=== PATIENT | female | born 1965 | race Caucasian/White ===

== ENCOUNTER 2016-09-20 13:05 | Emergency (ER) | payer OTHER ==
--- NOTE | 2016-09-20 15:50 | ED NURSING NOTES ---
Clinical Report - Nurses [facility] [address] [place] [address] 09/20/2016 13:09 Patient: ABHIJEET HUI TRIAGE Triage time 13:17. Acuity: LEVEL 3. Chief Complaint: ABDOMINAL PAIN and VOMITING and ("diverticulitis flare up"). Alert. No acute distress. SEPSIS SCREEN: Sepsis Screen. Negative (no infection suspected/documented). ELISA COMA SCORE: [place] Coma Scale: 15- eyes open spontaneously (4); best verbal response- oriented x 4 (5); best motor response- obeys commands (6). --13:31 Franchesca De La Torre R.N. 13:16 09/20/16. BP: 143/84. HR: 88. RR: 16. O2 saturation: 98%. Temp: 98.2 F. Pain level now 12/24. --13:31 Franchesca De La Torre R.N. Weight: 96.6 kg stated. Height/Length: 68 inches Per Patient. BMI: 32.4. --13:30 Franchesca De La Torre R.N. Medications NexIUM Oral. --13:22 Franchesca De La Torre R.N. Allergies Penicillin. --13:28 Franchesca De La Torre R.N. History Arrived by private vehicle. Historian: patient. Unaccompanied. Primary physician (GI: Dr. Romo/[facility]). Onset. (2 days ago). ( last normal BM:wednesday. Pt. states, " It looked normal but it hurt really bad. There was a round [place] around my feces." Then sat. I woke up at 0300 doubled over in bed in pain." Pt. is here because she is concerned with the pain. She has had many "flare ups" but usually the pain is not as bad.). PAST MEDICAL HX: Immunizations: up-to-date. SOCIAL HX: Light tobacco smoker (cigarette)- less than 1/2 a pack per day. Never smoker. No alcohol use or drug use. No recent travel. No infectious disease exposure. No known contact with a sick individual. ABUSE ASSESSMENT: Abuse assessment: The patient was asked "Do you feel safe in your home?" and "Has anyone hurt you or threatened to hurt you?". No report of abuse. NUTRITIONAL RISK ASSESSMENT: The nutritional risk assessment revealed no deficiencies. FUNCTIONAL ASSESSMENT: Functional assessment: no impairments noted. LEARNING NEEDS ASSESSMENT: The learning needs assessment revealed no barriers. --13:31 Franchesca De La Torre R.N. PROBLEMS: Nephrolithiasis. --13:28 Franchesca De La Torre R.N. Diverticulosis. Diverticulitis. GERD. --13:29 Franchesca De La Torre R.N. Interventions ID band on patient. Ambulatory. --13:31 Franchesca De La Torre R.N. PHYSICAL ASSESSMENT Ambulatory to room. GENERAL / NEURO / PSYCH: Alert. Appears in no acute distress. HEENT: Mucous membranes are pink. RESPIRATORY: Respirations not labored. CVS: Capillary refill less than 2 seconds. GI / : Abdomen soft. Abdominal tenderness in the lower abdomen. SKIN: Skin is warm and dry. --13:31 Franchesca De La Torre R.N. NURSING PROGRESS NOTES Patient gowned. Head of bed elevated. Two patient identifiers checked. Call light placed in reach. Side rails up x 2. Bed placed in lowest position. Brakes of bed on. Patient ready for evaluation- chart flagged. --13:24 Franchesca De La Torre R.N. Patient ID band checked for patient name, birthdate and medical record number: patient confirmed. Instructions provided to collect clean catch urine and patient verbalized understanding. Clean catch urine collected with return of yellow-colored clear urine; sample sent to lab for urinalysis. Specimen labeled in the presence of the patient. --13:24 Franchesca De La Torre R.N. 13:35 09/20/2016 Site #1 started via IV in the left antecubital space with an 20g angiocath, with aseptic technique and good blood return; one attempt. Blood drawn: rainbow set. Labeled in the presence of the patient and sent to the lab. Saline lock flushed with 10 mL saline. --13:35 Franchesca De La Torre R.N. 13:38 09/20/2016 Started bag #1 1000 mL IV Fluids IV NS (Saline); at 1000 mL/hr over 1 hour(s) via site #1 via IV pump. Allergies verified and confirmed 5 rights. IV patency established. IV site checked: no pain, redness, or swelling. IV flushed thoroughly pre- and post-medication administration. --13:41 Franchesca De La Torre R.N. 13:42 09/20/2016 Zofran (Ondansetron HCl) IVP 8 mg given over 3 minute(s) via site #1. Allergies verified and confirmed 5 rights. IV patency established. IV site checked: no pain, redness, or swelling. IV flushed thoroughly pre- and post-medication administration. --13:42 Franchesca De La Torre R.N. 14:20 09/20/2016 PHENERGAN (Promethazine HCl) IVP 12.5 mg given over 2 minute(s) via site #1. Allergies verified and confirmed 5 rights. IV patency established. IV site checked: no pain, redness, or swelling. IV flushed thoroughly pre- and post-medication administration. --14:20 Franchesca De La Torre R.N. 14:23 09/20/2016 Dilaudid (HYDROmorphone HCl PF) IVP 1 mg given over 2 minute(s) via site #1. Allergies verified, confirmed 5 rights and sedative warning given to the patient. IV patency established. IV site checked: no pain, redness, or swelling. IV flushed thoroughly pre- and post-medication administration. --14:23 Franchesca De La Torre R.N. 14:23 09/20/16. BP: 110/81. HR: 64. RR: 16. O2 saturation: 98%. --14:24 Franchesca De La Torre R.N. 14:39 09/20/2016 Dilaudid IVP Response: no adverse reaction pain is improving. The patient feels better. --14:39 Franchesca De La Torre R.N. 15:32 09/20/16. BP: 117/76. HR: 82. RR: 14. O2 saturation: 93%. --15:33 Franchesca De La Torre R.N. 15:56 09/20/2016 Metronidazole PO 500 mg given. Allergies verified and confirmed 5 rights. --15:56 Franchesca De La Torre R.N. 15:57 09/20/2016 Ciprofloxacin (Ciprofloxacin) PO 500 mg given. Allergies verified and confirmed 5 rights. --15:57 Franchesca De La Torre R.N. 15:33 09/20/16. O2 saturation: 96% on nasal cannula at 2 liters/minute. --16:06 Franchesca De La Torre R.N. DISPOSITION / DISCHARGE 15:59 09/20/2016 Site #1 removed upon discharge. Catheter intact. Manual pressure and bandaid applied. --15:59 Franchesca De La Torre R.N. Condition at departure: stable. No learning barriers present. Discharge instructions provided and reviewed with the patient. Reviewed medication(s) side effects, precautions, dosing and course information. Prescription(s) given to the patient. Reviewed referral to family practice for followup. Patient verbalized understanding. Written instructions provided in Pashto. The patient was discharged home and accompanied by truck driver flatbed. She left the Emergency Department ambulatory and via private vehicle. Professor Of German driving. Medication list reviewed and validated. --16:00 Franchesca De La Torre R.N. 15:57 09/20/16. BP: 117/75. HR: 89. RR: 16. O2 saturation: 98%. Temp: 97.8 F. Pain level now 4/10. --16:00 Franchesca De L aTorre R.N. Departure time: 16:00. --16:00 Franchesca De La Torre R.N. Locked/Released at 09/20/2016 16:06 by Franchesca De La Torre R.N.
--- NOTE | 2016-09-20 15:50 | ED ORDER SUMMARY ---
..... Patient: ABHIJEET HUI OrderSheet [facility] VisitID: [id number] [address] [place] [address] 50y, F Registration Date/Time: 09/20/2016 ORDER SHEET Weight: 96.6 kg (stated) Allergies: Penicillin GENERAL ORDERS: CBC w Diff Urgent (13:35 09/20/2016 EKoroleva P.A.-C) (Ack 13:40 TBergley) (13:41 SReitz R.N.) CMP Urgent (13:35 09/20/2016 EKoroleva P.A.-C) (Ack 13:40 TBergley) (13:41 SReitz R.N.) UA-Culture if indicated Urgent (13:35 09/20/2016 EKoroleva P.A.-C) (13:36 OHernandez) Lipase Urgent (13:35 09/20/2016 EKoroleva P.A.-C) (Ack 13:40 TBergley) (13:41 SReitz R.N.) CT Abd/Pel w Cont (No) (see lab) Urgent (14:17 09/20/2016 EKoroleva P.A.-C) (Ack 14:18 TBergley) (14:56 OHernandez) MEDICATION ORDERS: Phenergan IV 12.5 mg (HIGH ALERT MEDICATION, NOW) (14:16 09/20/2016 EKoroleva P.A.-C) (14:20 SReitz R.N.) Metronidazole PO 500 mg (NOW) (15:48 09/20/2016 EKoroleva P.A.-C) (Ack 15:49 SReitz R.N.) (15:56 SReitz R.N.) Ciprofloxacin PO 500 mg (NOW) (15:48 09/20/2016 EKoroleva P.A.-C) (Ack 15:49 SReitz R.N.) (15:57 SReitz R.N.) IV FLUIDS: IV NS : initial bolus 1000 mL (1000 mL/hr), then 1000 mL/hr for X1 (NOW); Cesar (13:34 09/20/2016 EKoroleva P.A.-C) (13:41 Nolan Valle) Zofran IV 8 mg (NOW) (13:35 09/20/2016 Zoë Herring) (13:42 Nolan Valle) Dilaudid IV 1 mg (HIGH ALERT MEDICATION, NOW) (14:16 09/20/2016 Zoë Yang-C) (14:23 Nolan Valle) ORDER SHEET NOTES: [Electronically signed by Franchesca De La Torre R.N. (16:04 09/20/2016)] [Electronically signed by Lisa Villeda P.A.-C (16:04 09/20/2016)] [Electronically signed by Franchesca De La Torre R.N. (16:06 09/20/2016)] [Electronically locked/signed by Franchesca De La Torre R.N. (16:04 09/20/2016)]
--- NOTE | 2016-09-20 15:50 | ED CLINICAL REPORT ---
Clinical Report - Physicians/Mid Levels [facility] [address] [place] [address] 09/20/2016 13:09 [id number] Time Seen: 13:31 Sep 20 2016. Arrived- By private vehicle. Historian- patient. HISTORY OF PRESENT ILLNESS Chief Complaint: ABDOMINAL PAIN. This started 2 days [employer] and is still present. It is described as "pain" and it is described as located in the right flank, the right abdomen and the left flank and in the pelvic area. The patient has had nausea, loss of appetite and vomiting. No diarrhea. (Patient reports pain over the last 2 days, recently on Wednesday was seen by ENT, increase her dose of Nexium, as patient has Flores's esophagitis, history of GERD, in addition patient reports some pelvic pain, and some frequency with no dysuria. Denies any diarrhea. Reports emesis 2 times over the last 24 hours.). REVIEW OF SYSTEMS No constipation, black stools, difficulty with urination, pain with urination or urinary frequency. No headache or sore throat. All systems otherwise negative, except as recorded above. PAST HISTORY Problems: Diverticulitis. Diverticulosis. GERD. Nephrolithiasis. Medications: NexIUM Oral. Allergies: Penicillin. SOCIAL HISTORY Smoker- current status unknown. No alcohol use. ADDITIONAL NOTES The nursing notes have been reviewed. PHYSICAL EXAM Vital Signs: 09/20/2016 13:17 BP: 143/84. HR: 88. RR: 16. O2 saturation: 98%. Temp: 98.2 F. Appearance: Alert. Eyes: Eyes normal inspection. ENT: Nose normal. Pharynx normal. Neck: Normal inspection. CVS: Normal heart rate and rhythm. Heart sounds normal. Rhythm normal. Respiratory: No respiratory distress. No accessory muscle use or decreased air movement. Abdomen: Soft. Tenderness in the lower abdomen. No obesity, rebound tenderness, scar present or guarding. Neuro: Oriented X 3. No motor deficit. LABS, X-RAYS, AND EKG Abdominal CT: IMPRESSION: 1. Moderate sigmoid diverticulitis with mural phlegmon. No perforation or drainable abscess. 2. Mild hepatic steatosis. 3. Findings called to the emergency room. All CT scans at this facility use dose modulation, iterative reconstruction, and/or weight-based dosing when appropriate to reduce radiation dose to as low as reasonably achievable. Electronically Final signed by:Karie Concepcion MD 09/20/2016 3:53:27 PM. Laboratory Tests: UA-Culture if indicated: (TRACIE: 09/20/2016 13:19) ( [facility] 09/20/2016 14:03) Final results Test Result Flag Units (Reference) URINE COLOR YELLOW URINE APPEARANCE CLEAR URINE GLUCOSE NEGATIVE (NEGATIVE) URINE BILIRUBIN NEGATIVE (NEGATIVE) URINE KETONE NEGATIVE (NEGATIVE) URINE SPECIFIC GRAVITY 1.020 (1.010-1.030) URINE PH 6.0 (5.0-8.0) URINE PROTEIN NEGATIVE (NEGATIVE) URINE UROBILINOGEN 0.2 EU/dL (0.2-1.0) URINE NITRITE NEGATIVE (NEGATIVE) URINE BLOOD NEGATIVE (NEGATIVE) URINE LEUK ESTERASE NEGATIVE (NEGATIVE) URINE RBC 0-1 rbc/hpf (0-1) URINE WBC 0-1 wbc/hpf (0-1) URINE EPITHELIAL CELLS 1-3 EPI/hpf (0-5) URINE BACTERIA FEW (1+) (NONE SEEN) URINE COMMENT CULT NOT INDICATED 1+ MUCOUSURINE CULTURES ARE SET-UP BASED ON THE FOLLOWING CRITERIA:POSITIVE NITRITEPOSITIVE LEUKOCYTE ESTERASEGREATER THAN 10 WHITE BLOOD CELLSMODERATE (2+) OR GREATER BACTERIA CBC w Diff: (TRACIE: 09/20/2016 13:30) ( [facility] 09/20/2016 13:54) Final results Test Result Flag Units (Reference) WHITE BLOOD COUNT 12.1 H K/uL (4.5-11.5) RED BLOOD COUNT 4.68 M/uL (4.00-5.20) HEMOGLOBIN 14.3 gm/dL (12.0-16.0) HEMATOCRIT 42.1 % (36.0-46.0) MEAN CELL VOLUME 90 fL (80-100) MEAN CORPUSCULAR HGB 31 pg (26-34) MEAN CORPUSCULAR HGB CONC 34 g/dL (31-37) RED CELL DISTRIBUTION WIDTH 13.7 % (11.6-14.8) PLATELET COUNT 184 K/uL (150-400) NEUTROPHIL % 76.4 H % (50-75) LYMPH % 16.3 L % (25-40) MONO % 6.2 % (3-14) EOSINOPHIL % 0.7 % (0-4) BASOPHIL % 0.4 % (0-2) CMP: (TRACIE: 09/20/2016 13:30) ( MsgRcvd 09/20/2016 13:55) Final results Test Result Flag Units (Reference) GLUCOSE 96 mg/dL (70-110) BUN 8 mg/dL (7-18) CREATININE 0.9 mg/dL (0.6-1.3) Estimated GFR >60 mL/min Estimated GFR- >60 mL/min Note: Persistent reduction over 3 months in eGFR<60 mL/min/1.73 m2 defines CKD. Patients with eGFR values>=60 mL/min/1.73 m2 may also have CKD if evidence ofpersistent proteinuria. Additional information may be foundat www.kidney.org. SODIUM 144 mmol/L (136-145) POTASSIUM 3.8 mmol/L (3.5-5.1) CHLORIDE 106 mmol/L (98-107) CARBON DIOXIDE 27 mmol/L (21-32) CALCIUM 8.5 mg/dL (8.5-10.1) TOTAL PROTEIN 7.3 g/dL (6.4-8.2) ALBUMIN 3.6 g/dL (3.3-5.0) BILIRUBIN, TOTAL 0.5 mg/dL (0.0-1.0) ALKALINE PHOSPHATASE 69 U/L (46-116) AST (SGOT) 15 U/L (15-37) ALT (SGPT) 31 U/L (12-78) LIPASE 111 U/L (73-393) . PROGRESS AND PROCEDURES Course of Care: During the time in the ED, the following DDX were considered: acute surgical abdomen, hemodynamic or metabolic instability, dehydration, gastroenteritis-viral, food borne, or bacterial, food intolerance, irritable or inflammatory bowel, infection, sepsis. patient with mild psychosis, otherwise no distress. Abdomen is soft, mild suprapubic tenderness. Patient with signs of acute diverticulitis. No diarrhea. No fevers. Nonseptic. Patient can be managed outpatient, discussed this with her, this is her first episode of diverticulitis, urged her to follow-up with her surgeon as well as gastroenterology. Patient able to tolerate by mouth. 09/20/2016 15:32 BP: 117/76. HR: 82. RR: 14. O2 saturation: 93%. 09/20/2016 14:23 BP: 110/81. HR: 64. RR: 16. O2 saturation: 98%. Patient is stable. Symptoms better. Patient/family counseled. Disposition: Discharged. CLINICAL IMPRESSION Acute diverticulitis. INSTRUCTIONS Drink plenty of fluids. Prescription Medications: Hydrocodone/APAP 5mg / 325mg: take 1 orally every 6 hours as needed for pain. Dispense fifteen (15). No refill. Zofran (orally disintegrating tablets) 4 mg: take 1 orally every 6 hours as needed for nausea. Dispense ten (10). No refill. Substitution is permissible. Cipro 500 mg: take 1 tab orally every 12 hours for 10 days. No refills. Substitution is permissible. Phenergan take 1 every 8 hours as needed for nausea. Dispense fifteen (15). No refill Metronidazole 500 mg: Take 1 tablet orally every 8 hours for 10 days. No refill Follow-up: Follow up with your doctor in three days. (Electronically signed by Lisa Villeda P.A.-C 09/20/2016 16:04)
--- NOTE | 2016-09-20 15:50 | ED ORDER SUMMARY ---
..... Patient: ABHIJEET HUI OrderSheet [facility] VisitID: [id number] [address] [place] [address] 50y, F Registration Date/Time: 09/20/2016 ORDER SHEET Weight: 96.6 kg (stated) Allergies: Penicillin GENERAL ORDERS: CBC w Diff Urgent (13:35 09/20/2016 EKoroleva P.A.-C) (Ack 13:40 TBergley) (13:41 SReitz R.N.) CMP Urgent (13:35 09/20/2016 EKoroleva P.A.-C) (Ack 13:40 TBergley) (13:41 SReitz R.N.) UA-Culture if indicated Urgent (13:35 09/20/2016 EKoroleva P.A.-C) (13:36 OHernandez) Lipase Urgent (13:35 09/20/2016 EKoroleva P.A.-C) (Ack 13:40 TBergley) (13:41 SReitz R.N.) CT Abd/Pel w Cont (No) (see lab) Urgent (14:17 09/20/2016 EKoroleva P.A.-C) (Ack 14:18 TBergley) (14:56 OHernandez) MEDICATION ORDERS: Phenergan IV 12.5 mg (HIGH ALERT MEDICATION, NOW) (14:16 09/20/2016 EKoroleva P.A.-C) (14:20 SReitz R.N.) Metronidazole PO 500 mg (NOW) (15:48 09/20/2016 EKoroleva P.A.-C) (Ack 15:49 SReitz R.N.) (15:56 SReitz R.N.) Ciprofloxacin PO 500 mg (NOW) (15:48 09/20/2016 EKoroleva P.A.-C) (Ack 15:49 SReitz R.N.) (15:57 SReitz R.N.) IV FLUIDS: IV NS : initial bolus 1000 mL (1000 mL/hr), then 1000 mL/hr for X1 (NOW); Cesar (13:34 09/20/2016 EKoroleva P.A.-C) (13:41 Nolan Valle) Zofran IV 8 mg (NOW) (13:35 09/20/2016 Zoë Herring) (13:42 Nolan Valle) Dilaudid IV 1 mg (HIGH ALERT MEDICATION, NOW) (14:16 09/20/2016 Zoë Yang-C) (14:23 Nolan Valle) ORDER SHEET NOTES: [Electronically signed by Franchesca De La Torre R.N. (16:04 09/20/2016)] [Electronically signed by Lisa Villeda P.A.-C (16:04 09/20/2016)] [Electronically signed by Franchesca De La Torre R.N. (16:06 09/20/2016)] [Electronically locked/signed by Franchesca De La Torre R.N. (16:04 09/20/2016)]
--- NOTE | 2016-09-20 15:50 | ED NURSING NOTES ---
Clinical Report - Nurses [facility] [address] [place] [address] 09/20/2016 13:09 Patient: ABHIJEET HUI TRIAGE Triage time 13:17. Acuity: LEVEL 3. Chief Complaint: ABDOMINAL PAIN and VOMITING and ("diverticulitis flare up"). Alert. No acute distress. SEPSIS SCREEN: Sepsis Screen. Negative (no infection suspected/documented). ELISA COMA SCORE: [place] Coma Scale: 15- eyes open spontaneously (4); best verbal response- oriented x 4 (5); best motor response- obeys commands (6). --13:31 Franchesca De La Torre R.N. 13:16 09/20/16. BP: 143/84. HR: 88. RR: 16. O2 saturation: 98%. Temp: 98.2 F. Pain level now 12/24. --13:31 Franchesca De La Torre R.N. Weight: 96.6 kg stated. Height/Length: 68 inches Per Patient. BMI: 32.4. --13:30 Franchesca De La Torre R.N. Medications NexIUM Oral. --13:22 Franchesca De La Torre R.N. Allergies Penicillin. --13:28 Franchesca De La Torre R.N. History Arrived by private vehicle. Historian: patient. Unaccompanied. Primary physician (GI: Dr. Romo/[facility]). Onset. (2 days ago). ( last normal BM:wednesday. Pt. states, " It looked normal but it hurt really bad. There was a round [place] around my feces." Then sat. I woke up at 0300 doubled over in bed in pain." Pt. is here because she is concerned with the pain. She has had many "flare ups" but usually the pain is not as bad.). PAST MEDICAL HX: Immunizations: up-to-date. SOCIAL HX: Light tobacco smoker (cigarette)- less than 1/2 a pack per day. Never smoker. No alcohol use or drug use. No recent travel. No infectious disease exposure. No known contact with a sick individual. ABUSE ASSESSMENT: Abuse assessment: The patient was asked "Do you feel safe in your home?" and "Has anyone hurt you or threatened to hurt you?". No report of abuse. NUTRITIONAL RISK ASSESSMENT: The nutritional risk assessment revealed no deficiencies. FUNCTIONAL ASSESSMENT: Functional assessment: no impairments noted. LEARNING NEEDS ASSESSMENT: The learning needs assessment revealed no barriers. --13:31 Franchesca De La Torre R.N. PROBLEMS: Nephrolithiasis. --13:28 Franchesca De La Torre R.N. Diverticulosis. Diverticulitis. GERD. --13:29 Franchesca De La Torre R.N. Interventions ID band on patient. Ambulatory. --13:31 Franchesca De La Torre R.N. PHYSICAL ASSESSMENT Ambulatory to room. GENERAL / NEURO / PSYCH: Alert. Appears in no acute distress. HEENT: Mucous membranes are pink. RESPIRATORY: Respirations not labored. CVS: Capillary refill less than 2 seconds. GI / : Abdomen soft. Abdominal tenderness in the lower abdomen. SKIN: Skin is warm and dry. --13:31 Franchesca De La Torre R.N. NURSING PROGRESS NOTES Patient gowned. Head of bed elevated. Two patient identifiers checked. Call light placed in reach. Side rails up x 2. Bed placed in lowest position. Brakes of bed on. Patient ready for evaluation- chart flagged. --13:24 Franchesca De La Torre R.N. Patient ID band checked for patient name, birthdate and medical record number: patient confirmed. Instructions provided to collect clean catch urine and patient verbalized understanding. Clean catch urine collected with return of yellow-colored clear urine; sample sent to lab for urinalysis. Specimen labeled in the presence of the patient. --13:24 Franchesca De La Torre R.N. 13:35 09/20/2016 Site #1 started via IV in the left antecubital space with an 20g angiocath, with aseptic technique and good blood return; one attempt. Blood drawn: rainbow set. Labeled in the presence of the patient and sent to the lab. Saline lock flushed with 10 mL saline. --13:35 Franchesca De La Torre R.N. 13:38 09/20/2016 Started bag #1 1000 mL IV Fluids IV NS (Saline); at 1000 mL/hr over 1 hour(s) via site #1 via IV pump. Allergies verified and confirmed 5 rights. IV patency established. IV site checked: no pain, redness, or swelling. IV flushed thoroughly pre- and post-medication administration. --13:41 Franchesca De La Torre R.N. 13:42 09/20/2016 Zofran (Ondansetron HCl) IVP 8 mg given over 3 minute(s) via site #1. Allergies verified and confirmed 5 rights. IV patency established. IV site checked: no pain, redness, or swelling. IV flushed thoroughly pre- and post-medication administration. --13:42 Franchesca De La Torre R.N. 14:20 09/20/2016 PHENERGAN (Promethazine HCl) IVP 12.5 mg given over 2 minute(s) via site #1. Allergies verified and confirmed 5 rights. IV patency established. IV site checked: no pain, redness, or swelling. IV flushed thoroughly pre- and post-medication administration. --14:20 Franchesca De La Torre R.N. 14:23 09/20/2016 Dilaudid (HYDROmorphone HCl PF) IVP 1 mg given over 2 minute(s) via site #1. Allergies verified, confirmed 5 rights and sedative warning given to the patient. IV patency established. IV site checked: no pain, redness, or swelling. IV flushed thoroughly pre- and post-medication administration. --14:23 Franchesca De La Torre R.N. 14:23 09/20/16. BP: 110/81. HR: 64. RR: 16. O2 saturation: 98%. --14:24 Franchesca De La Torre R.N. 14:39 09/20/2016 Dilaudid IVP Response: no adverse reaction pain is improving. The patient feels better. --14:39 Franchesca De La Torre R.N. 15:32 09/20/16. BP: 117/76. HR: 82. RR: 14. O2 saturation: 93%. --15:33 Franchesca De La Torre R.N. 15:56 09/20/2016 Metronidazole PO 500 mg given. Allergies verified and confirmed 5 rights. --15:56 Franchesca De La Torre R.N. 15:57 09/20/2016 Ciprofloxacin (Ciprofloxacin) PO 500 mg given. Allergies verified and confirmed 5 rights. --15:57 Franchesca De La Torre R.N. 15:33 09/20/16. O2 saturation: 96% on nasal cannula at 2 liters/minute. --16:06 Franchesca De La Torre R.N. DISPOSITION / DISCHARGE 15:59 09/20/2016 Site #1 removed upon discharge. Catheter intact. Manual pressure and bandaid applied. --15:59 Franchesca De La Torre R.N. Condition at departure: stable. No learning barriers present. Discharge instructions provided and reviewed with the patient. Reviewed medication(s) side effects, precautions, dosing and course information. Prescription(s) given to the patient. Reviewed referral to family practice for followup. Patient verbalized understanding. Written instructions provided in Divehi. The patient was discharged home and accompanied by office machines sales representative. She left the Emergency Department ambulatory and via private vehicle. Fruit Or Nut Farmworker driving. Medication list reviewed and validated. --16:00 Franchesca De La Torre R.N. 15:57 09/20/16. BP: 117/75. HR: 89. RR: 16. O2 saturation: 98%. Temp: 97.8 F. Pain level now 4/10. --16:00 Franchesca De La Torre R.N. Departure time: 16:00. --16:00 Franchesca De La Torre R.N. Locked/Released at 09/20/2016 16:06 by Franchesca De La Torre R.N.
--- NOTE | 2016-09-20 15:53 | DIAGNOSTIC IMAGING REPORT ---
PROCEDURE: ABDOMEN/PELVIS WITH CONTRAST CLINICAL INDICATION: ABDOMINAL PAIN TECHNIQUE: 125 ml of Isovue 300 were injected intravenously and axial images were obtained of the abdomen and pelvis with sagittal and coronal reformations. COMPARISON: None. FINDINGS: ABDOMEN: Mild bibasilar atelectatic changes. Normal sized heart. No hiatal hernia. The liver is mildly hypodense. The gallbladder, adrenal glands, kidneys, pancreas and spleen are normal. The abdominal aorta is normal in its course and caliber. No atherosclerosis. There are no suspicious calcifications, retroperitoneal adenopathy or masses. Numerous nonenlarged reactive retroperitoneal lymph nodes. The stomach, upper bowel loops, and mesentery are normal. Intact anterior abdominal wall. No free fluid or inflammation. Moderately numerous sigmoid diverticula are present. Circumferential wall thickening and wall edema involving the mid to distal sigmoid colon with ill- defined peripherally hyperemic areas within the wall suggestive of phlegmonous regions. There is no sara perforation or drainable fluid collection. Moderate pericolonic inflammation extending to the left posterolateral pelvic wall. Inflammation displaces the uterus to the right. PELVIS: The appendix and pelvic small bowel loops are normal. Normal amount of stool in the colon and rectum. I diverticula noted in the distal descending colon. The uterus, ovaries, urinary bladder, and pelvic vessels are normal. No adenopathy, free fluid, or pelvic mass. Severe degenerative disc height loss with posterior disc herniation and vacuum phenomenon at L5-S1. IMPRESSION: 1. Moderate sigmoid diverticulitis with mural phlegmon. No perforation or drainable abscess. 2. Mild hepatic steatosis. 3. Findings called to the emergency room. All CT scans at this facility use dose modulation, iterative reconstruction, and/or weight-based dosing when appropriate to reduce radiation dose to as low as reasonably achievable.
--- NOTE | 2016-09-20 16:06 | ED MAR SUMMARY ---
..... Medication Administration Record [facility] [address] [place] [address] Patient: ABHIJEET HUI Visit ID: [id number] 50y, F Weight: 96.6 kg Height/Length: 68 in BMI: 32.4 ALLERGIES: Penicillin Start 13:38 09/20/2016 Franchesca De La Torre R.N. Medication Administered: IV NS (SALINE), Dose: IV Fluids over 1 hour(s), Rate: 1000 mL/hr, Dispensed: 1000 mL bag, Site: #1 left AC. Medication Ordered: IV NS : initial bolus 1000 mL (1000 mL/hr), then 1000 mL/hr for X1 (NOW); Cesar. Given 13:42 09/20/2016 Franchesca De La Torre R.N. Medication Administered: ZOFRAN [IVP] (ONDANSETRON HCL), Dose: 8 mg IVP over 3 minute(s), Site: #1 left AC. Medication Ordered: Zofran IV 8 mg (NOW). Given 14:20 09/20/2016 Franchesca De La Torre R.N. Medication Administered: PHENERGAN [IVP] (PROMETHAZINE HCL), Dose: 12.5 mg IVP over 2 minute(s), Site: #1 left AC. Medication Ordered: Phenergan IV 12.5 mg (HIGH ALERT MEDICATION, NOW). Given 14:23 09/20/2016 Franchesca De La Torre R.N. Medication Administered: DILAUDID [IVP] (HYDROMORPHONE HCL PF), Dose: 1 mg IVP over 2 minute(s), Site: #1 left AC. Medication Ordered: Dilaudid IV 1 mg (HIGH ALERT MEDICATION, NOW). Given 15:56 09/20/2016 Franchesca De La Torre R.N. Medication Administered: METRONIDAZOLE [PO], Dose: 500 mg PO. Medication Ordered: Metronidazole PO 500 mg (NOW). Given 15:57 09/20/2016 Franchesca De La Torre R.N. Medication Administered: CIPROFLOXACIN [PO] (CIPROFLOXACIN), Dose: 500 mg PO. Medication Ordered: Ciprofloxacin PO 500 mg (NOW).
--- NOTE | 2016-09-20 16:06 | ED MAR SUMMARY ---
..... Medication Administration Record [facility] [address] [place] [address] Patient: ABHIJEET HUI Visit ID: [id number] 50y, F Weight: 96.6 kg Height/Length: 68 in BMI: 32.4 ALLERGIES: Penicillin Start 13:38 09/20/2016 Franchesca De La Torre R.N. Medication Administered: IV NS (SALINE), Dose: IV Fluids over 1 hour(s), Rate: 1000 mL/hr, Dispensed: 1000 mL bag, Site: #1 left AC. Medication Ordered: IV NS : initial bolus 1000 mL (1000 mL/hr), then 1000 mL/hr for X1 (NOW); Cesar. Given 13:42 09/20/2016 Franchesca De La Torre R.N. Medication Administered: ZOFRAN [IVP] (ONDANSETRON HCL), Dose: 8 mg IVP over 3 minute(s), Site: #1 left AC. Medication Ordered: Zofran IV 8 mg (NOW). Given 14:20 09/20/2016 Franchesca De La Torre R.N. Medication Administered: PHENERGAN [IVP] (PROMETHAZINE HCL), Dose: 12.5 mg IVP over 2 minute(s), Site: #1 left AC. Medication Ordered: Phenergan IV 12.5 mg (HIGH ALERT MEDICATION, NOW). Given 14:23 09/20/2016 Franchesca De La Torre R.N. Medication Administered: DILAUDID [IVP] (HYDROMORPHONE HCL PF), Dose: 1 mg IVP over 2 minute(s), Site: #1 left AC. Medication Ordered: Dilaudid IV 1 mg (HIGH ALERT MEDICATION, NOW). Given 15:56 09/20/2016 Franchesca De La Torre R.N. Medication Administered: METRONIDAZOLE [PO], Dose: 500 mg PO. Medication Ordered: Metronidazole PO 500 mg (NOW). Given 15:57 09/20/2016 Franchesca De La Torre R.N. Medication Administered: CIPROFLOXACIN [PO] (CIPROFLOXACIN), Dose: 500 mg PO. Medication Ordered: Ciprofloxacin PO 500 mg (NOW).
--- NOTE | 2016-09-20 16:06 | ED DISCHARGE INSTRUCTIONS ---
Patient: ABHIJEET HUI General Instructions [facility] VisitID: [id number] [address] [place] [address] 50y, F Registration Date/Time: 09/20/2016 Acute diverticulitis. INSTRUCTIONS Drink plenty of fluids. Prescription Medications: Hydrocodone/APAP 5mg / 325mg: take 1 orally every 6 hours as needed for pain. Dispense fifteen (15). No refill. Zofran (orally disintegrating tablets) 4 mg: take 1 orally every 6 hours as needed for nausea. Dispense ten (10). No refill. Substitution is permissible. Cipro 500 mg: take 1 tab orally every 12 hours for 10 days. No refills. Substitution is permissible. Phenergan take 1 every 8 hours as needed for nausea. Dispense fifteen (15). No refill Metronidazole 500 mg: Take 1 tablet orally every 8 hours for 10 days. No refill Follow-up: Follow up with your doctor in three days. ADDITIONAL INFORMATION [place] Diet A bland diet is used for patients with an upset stomach. It consists of foods that are mild and easy to digest. It is better to eat small frequent meals rather than three large meals a day. BEVERAGES OK: Fruit juices, non-caffeinated teas and coffee, non-carbonated ruggiero AVOID: Carbonated beverage, caffeinated tea and coffee, all alcoholic beverages BREAD OK: Refined white, wheat or rye bread, timur or soda crackers, Brooke toast, plain rolls, bagels AVOID: Whole-grain bread CEREAL OK: Refined cereals: cooked or ready to eat AVOID: Whole grain cereals and granola, or those containing bran, seeds or nuts DESSERTS OK: Peanut butter and all others except those to "avoid" AVOID: Chocolate, cocoa, coconut, popcorn, nuts, seeds, jam, marmalade FRUITS OK: Canned, cooked, frozen or fresh fruits without seeds or tough skin AVOID: Olives, skin and seeds of fruit MEATS OK: All fresh or preserved meat, fish and fowl AVOID: Any that are prepared with those spices to "avoid" CHEESE & EGGS OK: Eggs, cottage cheese, cream cheese, other cheeses AVOID: All cheeses made with those spices to "avoid" POTATOES & PASTA OK: Potato, rice, macaroni, noodles, spaghetti AVOID: None SOUPS OK: All soups without heavy seasoning AVOID: Soups made with those spices to "avoid" VEGETABLES OK: Canned, cooked, fresh or frozen mildly flavored vegetables without seeds, skins or coarse fiber AVOID: Vegetables prepared with those spices to "avoid"; skin and seeds of vegetables and those with coarse fiber SPICES OK: Salt, lemon and pamunkey juice, vinegar, all extracts, rani, cinnamon, thyme, mace, allspice, paprika AVOID: [place]land powder, cloves, pepper, seed spices, garlic, gravy pickles, highly seasoned salad dressings Clear Liquid Diet Clear liquids are any liquid that you can see through as well as those that are very easy to digest. This is used while the body is recovering from irritation or infection of the stomach or intestinal tract. It may also be used before special procedures or surgery. This diet is to be used no more than three days. You may include the following items. Adults Adults should drink a total of 23 quarts of liquid per day. It may be easier to drink small frequent servings rather than a few large ones. Liquids can include: Fruit juices.Strained orange juice or lemonade (no pulp), apple, grape and cranberry juice, clear fruit drinks, sports drinks Beverages.Sport drinks, sodas, mineral water (plain or flavored), tea, black coffee, liquid gelatin (add twice the recommended amount of water) Soups.Clear broth, consomm, bouillon Desserts.Plain gelatin, popsicles, fruit juice bars Children Over 2 years old The following liquids are acceptable for children over age 2: Fruit juices.Strained orange juice or lemonade (no pulp), apple, grape and cranberry juice, clear fruit drinks Beverages. Sports drinks, sodas, mineral water (plain or flavored), tea, liquid gelatin (add twice the recommended amount of water) Soups. Clear broth, consomm, bouillon Desserts. Plain gelatin, popsicles, fruit juice bars Children under 2 years old Oral rehydration fluids such are available at drug stores and most grocery stores without a prescription. High Fiber Diet Fiber is present in all fruits, vegetables, cereals and grains. Fiber passes through the body undigested. A high fiber diet helps food move through the intestinal tract. The added bulk is helpful in preventing constipation. In people with diverticulosis it serves to clean out the pouches along the colon wall while preventing new ones from forming. A high fiber diet also reduces the risk of colon cancer, decreases blood cholesterol and prevents high blood sugar in people with diabetes. The foods listed below are high in fiber and should be included in your diet. If you are not used to high fiber foods, start with 1 or 2 foods from this list. Every 3-4 days add a new one to your diet until you are eating 4 high fiber foods per day. This should give you 20-35 Gm of fiber/day. It is also important to drink a lot of water when you are on this diet (6-8 glasses a day). Water causes the fiber to swell and increases the benefit. Foods High In Dietary Fiber: BREADS: Made with 100% whole wheat flour; timur, wheat or rye crackers; tortillas, bran muffins CEREALS: Whole grain cereal with bran (Chex, Raisin Bran, [place] Bran), oatmeal, rolled oats, granola, wheat flakes, brown rice NUTS: Any nuts FRUITS: All fresh fruits along with edible skins, (bananas, citrus fruit, mangoes, pears, prunes, raisins, apples, pineapple, apricot, melon, jams and marmalades), fruit juices (especially prune juice) VEGETABLES: All types, preferably raw or lightly cooked: especially, celery, eggplant, potatoes,spinach, broccoli, brussel sprouts, winter squash, carrots, cauliflower, soybeans, lentils, fresh and dried beans of all kinds OTHER: Popcorn, any spices Hydrocodone Bitartrate, Acetaminophen Oral tablet What is this medicine? ACETAMINOPHEN; HYDROCODONE (a set a MIGDALIA mike fen; vicky droe KOE done) is a pain reliever. It is used to treat mild to moderate pain. How should I use this medicine? Take this medicine by mouth. Swallow it with a full glass of water. Follow the directions on the prescription label. If the medicine upsets your stomach, take the medicine with food or milk. Do not take more than you are told to take. Talk to your luggage attendant regarding the use of this medicine in children. This medicine is not approved for use in children. What side effects may I notice from receiving this medicine? Side effects that you should report to your doctor or health career technical education instructor as soon as possible: allergic reactions like skin rash, itching or hives, swelling of the face, lips, or tongue breathing problems confusion feeling faint or lightheaded, falls stomach pain yellowing of the eyes or skin Side effects that usually do not require medical attention (report to your doctor or health career technical education instructor if they continue or are bothersome): nausea, vomiting stomach upset What may interact with this medicine? alcohol antihistamines isoniazid medicines for depression, anxiety, or psychotic disturbances medicines for sleep muscle relaxants naltrexone narcotic medicines (opiates) for pain phenobarbital ritonavir tramadol What if I miss a dose? If you miss a dose, take it as soon as you can. If it is almost time for your next dose, take only that dose. Do not take double or extra doses. Where should I keep my medicine? Keep out of the reach of children. This medicine can be abused. Keep your medicine in a safe place to protect it from theft. Do not share this medicine with anyone. Selling or giving away this medicine is dangerous and against the law. Store at room temperature between 15 and 30 degrees C (59 and 86 degrees F). Protect from light. Keep container tightly closed. Throw away any unused medicine after the expiration date. Discard unused medicine and used packaging carefully. Pets and children can be harmed if they find used or lost packages. What should I tell my health care provider before I take this medicine? They need to know if you have any of these conditions: brain tumor Crohn's disease, inflammatory bowel disease, or ulcerative colitis drink more than 3 alcohol-containing drinks per day drug abuse or addiction head injury heart or circulation problems kidney disease or problems going to the bathroom liver disease lung disease, asthma, or breathing problems an unusual or allergic reaction to acetaminophen, hydrocodone, other opioid analgesics, other medicines, foods, dyes, or preservatives or trying to get breast-feeding What should I watch for while using this medicine? Tell your doctor or health career technical education instructor if your pain does not go away, if it gets worse, or if you have new or a different type of pain. You may develop tolerance to the medicine. Tolerance means that you will need a higher dose of the medicine for pain relief. Tolerance is normal and is expected if you take the medicine for a long time. Do not suddenly stop taking your medicine because you may develop a severe reaction. Your body becomes used to the medicine. This does NOT mean you are addicted. Addiction is a behavior related to getting and using a drug for a non-medical reason. If you have pain, you have a medical reason to take pain medicine. Your doctor will tell you how much medicine to take. If your doctor wants you to stop the medicine, the dose will be slowly lowered over time to avoid any side effects. You may get drowsy or dizzy when you first start taking the medicine or change doses. Do not drive, use machinery, or do anything that may be dangerous until you know how the medicine affects you. Stand or sit up slowly. There are different types of narcotic medicines (opiates) for pain. If you take more than one type at the same time, you may have more side effects. Give your health care provider a list of all medicines you use. Your doctor will tell you how much medicine to take. Do not take more medicine than directed. Call emergency for help if you have problems breathing. The medicine will cause constipation. Try to have a bowel movement at least every 2 to 3 days. If you do not have a bowel movement for 3 days, call your doctor or health career technical education instructor. Too much acetaminophen can be very dangerous. Do not take Tylenol (acetaminophen) or medicines that contain acetaminophen with this medicine. Many non-prescription medicines contain acetaminophen. Always read the labels carefully. Ondansetron Hydrochloride Oral tablet What is this medicine? ONDANSETRON (on YAZMIN se miguel angel) is used to treat nausea and vomiting caused by chemotherapy. It is also used to prevent or treat nausea and vomiting after surgery. How should I use this medicine? Take this medicine by mouth with a glass of water. Follow the directions on your prescription label. Take your doses at regular intervals. Do not take your medicine more often than directed. Talk to your luggage attendant regarding the use of this medicine in children. Special care may be needed. What side effects may I notice from receiving this medicine? Side effects that you should report to your doctor or health career technical education instructor as soon as possible: allergic reactions like skin rash, itching or hives, swelling of the face, lips or tongue breathing problems dizziness fast or irregular heartbeat feeling faint or lightheaded, falls fever and chills swelling of the hands or feet tightness in the chest Side effects that usually do not require medical attention (report to your doctor or health career technical education instructor if they continue or are bothersome): constipation or diarrhea headache What may interact with this medicine? Do not take this medicine with any of the following medications: -apomorphine -cisapride -dofetilide -dronedarone -pimozide -thioridazine -ziprasidone This medicine may also interact with the following medications: -carbamazepine -phenytoin -rifampicin -tramadol -other medicines that prolong the QT interval (cause an abnormal heart rhythm) What if I miss a dose? If you miss a dose, take it as soon as you can. If it is almost time for your next dose, take only that dose. Do not take double or extra doses. Where should I keep my medicine? Keep out of the reach of children. Store between 2 and 30 degrees C (36 and 86 degrees F). Throw away any unused medicine after the expiration date. What should I tell my health care provider before I take this medicine? They need to know if you have any of these conditions: heart disease history of irregular heartbeat liver disease low levels of magnesium or potassium in the blood an unusual or allergic reaction to ondansetron, granisetron, other medicines, foods, dyes, or preservatives or trying to get breast-feeding What should I watch for while using this medicine? Check with your doctor or health career technical education instructor right away if you have any sign of an allergic reaction. Ciprofloxacin Hydrochloride Oral tablet What is this medicine? CIPROFLOXACIN (sip eladia FLOX a sin) is a quinolone antibiotic. It is used to treat certain kinds of bacterial infections. It will not work for colds, flu, or other viral infections. How should I use this medicine? Take this medicine by mouth with a glass of water. Follow the directions on the prescription label. Take your medicine at regular intervals. Do not take your medicine more often than directed. Take all of your medicine as directed even if you think your are better. Do not skip doses or stop your medicine early. You can take this medicine with food or on an empty stomach. It can be taken with a meal that contains dairy or calcium, but do not take it alone with a dairy product, like milk or yogurt or calcium-fortified juice. A special MedGuide will be given to you by the pharmacist with each prescription and refill. Be sure to read this information carefully each time. Talk to your luggage attendant regarding the use of this medicine in children. Special care may be needed. What side effects may I notice from receiving this medicine? Side effects that you should report to your doctor or health career technical education instructor as soon as possible: - allergic reactions like skin rash, itching or hives, swelling of the face, lips, or tongue - breathing problems - confusion, nightmares or hallucinations - feeling faint or lightheaded, falls - irregular heartbeat - joint, muscle or tendon pain or swelling - pain or trouble passing urine -persistent headache with or without blurred vision - redness, blistering, peeling or loosening of the skin, including inside the mouth - seizure - unusual pain, numbness, tingling, or weakness Side effects that usually do not require medical attention (report to your doctor or health career technical education instructor if they continue or are bothersome): - diarrhea - nausea or stomach upset - white patches or sores in the mouth What may interact with this medicine? Do not take this medicine with any of the following medications: cisapride droperidol terfenadine tizanidine This medicine may also interact with the following medications: antacids caffeine cyclosporin didanosine (ddI) buffered tablets or powder medicines for diabetes medicines for inflammation like ibuprofen, naproxen methotrexate multivitamins omeprazole phenytoin probenecid sucralfate theophylline warfarin What if I miss a dose? If you miss a dose, take it as soon as you can. If it is almost time for your next dose, take only that dose. Do not take double or extra doses. Where should I keep my medicine? Keep out of the reach of children. Store at room temperature below 30 degrees C (86 degrees F). Keep container tightly closed. Throw away any unused medicine after the expiration date. What should I tell my health care provider before I take this medicine? They need to know if you have any of these conditions: -bone problems -cerebral disease -joint problems -irregular heartbeat -kidney disease -liver disease -myasthenia gravis -seizure disorder -tendon problems -an unusual or allergic reaction to ciprofloxacin, other antibiotics or medicines, foods, dyes, or preservatives - or trying to get -breast-feeding What should I watch for while using this medicine? Tell your doctor or health career technical education instructor if your symptoms do not improve. Do not treat diarrhea with over the counter products. Contact your doctor if you have diarrhea that lasts more than 2 days or if it is severe and watery. You may get drowsy or dizzy. Do not drive, use machinery, or do anything that needs mental alertness until you know how this medicine affects you. Do not stand or sit up quickly, especially if you are an older patient. This reduces the risk of dizzy or fainting spells. This medicine can make you more sensitive to the sun. Keep out of the sun. If you cannot avoid being in the sun, wear protective clothing and use sunscreen. Do not use sun lamps or tanning beds/booths. Avoid antacids, aluminum, calcium, iron, magnesium, and zinc products for 6 hours before and 2 hours after taking a dose of this medicine. Metronidazole Oral tablet What is this medicine? METRONIDAZOLE (me troe NI da zole) is an antiinfective. It is used to treat certain kinds of bacterial and protozoal infections. It will not work for colds, flu, or other viral infections. How should I use this medicine? Take this medicine by mouth with a full glass of water. Follow the directions on the prescription label. Take your medicine at regular intervals. Do not take your medicine more often than directed. Take all of your medicine as directed even if you think you are better. Do not skip doses or stop your medicine early. Talk to your luggage attendant regarding the use of this medicine in children. Special care may be needed. What side effects may I notice from receiving this medicine? Side effects that you should report to your doctor or health career technical education instructor as soon as possible: allergic reactions like skin rash or hives, swelling of the face, lips, or tongue confusion, clumsiness difficulty speaking discolored or sore mouth dizziness fever, infection numbness, tingling, pain or weakness in the hands or feet trouble passing urine or change in the amount of urine redness, blistering, peeling or loosening of the skin, including inside the mouth seizures unusually weak or tired vaginal irritation, dryness, or discharge Side effects that usually do not require medical attention (report to your doctor or health career technical education instructor if they continue or are bothersome): diarrhea headache irritability metallic taste nausea stomach pain or cramps trouble sleeping What may interact with this medicine? Do not take this medicine with any of the following medications: alcohol or any product that contains alcohol amprenavir oral solution cisapride disulfiram dofetilide dronedarone paclitaxel injection pimozide ritonavir oral solution sertraline oral solution sulfamethoxazole-trimethoprim injection thioridazine ziprasidone This medicine may also interact with the following medications: cimetidine lithium other medicines that prolong the QT interval (cause an abnormal heart rhythm) phenobarbital phenytoin warfarin What if I miss a dose? If you miss a dose, take it as soon as you can. If it is almost time for your next dose, take only that dose. Do not take double or extra doses. Where should I keep my medicine? Keep out of the reach of children. Store at room temperature below 25 degrees C (77 degrees F). Protect from light. Keep container tightly closed. Throw away any unused medicine after the expiration date. What should I tell my health care provider before I take this medicine? They need to know if you have any of these conditions: anemia or other blood disorders disease of the nervous system fungal or yeast infection if you drink alcohol containing drinks liver disease seizures an unusual or allergic reaction to metronidazole, or other medicines, foods, dyes, or preservatives or trying to get breast-feeding What should I watch for while using this medicine? Tell your doctor or health career technical education instructor if your symptoms do not improve or if they get worse. You may get drowsy or dizzy. Do not drive, use machinery, or do anything that needs mental alertness until you know how this medicine affects you. Do not stand or sit up quickly, especially if you are an older patient. This reduces the risk of dizzy or fainting spells. Avoid alcoholic drinks while you are taking this medicine and for three days afterward. Alcohol may make you feel dizzy, sick, or flushed. If you are being treated for a sexually transmitted disease, avoid sexual contact until you have finished your treatment. Your sexual partner may also need treatment. You have been given the following additional information: Diet, [place] (Adult) Diet, Clear Liquid Diet, High Fiber Hydrocodone Bitartrate, Acetaminophen Oral tablet Ondansetron Hydrochloride Oral tablet Ciprofloxacin Hydrochloride Oral tablet Metronidazole Oral tablet (Electronically signed by Lisa Villeda P.A.-C 09/20/2016 16:04)
--- NOTE | 2016-09-20 16:07 | ED MED RECONCILIATION SUMMARY ---
Patient: ABHIJEET HUI Medication Reconciliation Report [facility] VisitID: [id number] [address] [place] [address] 50y, F Registration Date/Time: 09/20/2016 Weight: 96.6 kg Height/Length: 68 in. BMI: 32.4 ALLERGIES: Penicillin The patient's Home Medications are listed below: THE FOLLOWING MEDICATIONS NEED TO BE RECONCILED: NexIUM Oral The source(s) of the original Home Medication information: Not obtained. The following Medications were given to the patient in the Emergency Department: IV NS IV Fluids bolus 0, then 1000 mL/hr, administered: 09/20/2016 1:38:00 PM Zofran [IVP] IVP 8 mg, administered: 09/20/2016 1:42:00 PM PHENERGAN [IVP] IVP 12.5 mg, administered: 09/20/2016 2:20:00 PM Dilaudid [IVP] IVP 1 mg, administered: 09/20/2016 2:23:00 PM Metronidazole [PO] PO 500 mg, administered: 09/20/2016 3:56:00 PM Ciprofloxacin [PO] PO 500 mg, administered: 09/20/2016 3:57:00 PM The following Medications were prescribed to the patient: Hydrocodone/APAP 5mg / 325mg: take 1 orally every 6 hours as needed for pain. Dispense fifteen (15). No refill. -- Koroleva, Lisa, P.A.-C Zofran (orally disintegrating tablets) 4 mg: take 1 orally every 6 hours as needed for nausea. Dispense ten (10). No refill. Substitution is permissible. -- Koroleva, Lisa, P.A.-C Cipro 500 mg: take 1 tab orally every 12 hours for 10 days. No refills. Substitution is permissible. -- Koroleva, Lisa, P.A.-C Phenergan take 1 every 8 hours as needed for nausea. Dispense fifteen (15). No refill -- Koroleva, Lisa, P.A.-C Metronidazole 500 mg: Take 1 tablet orally every 8 hours for 10 days. No refill -- Koroleva, Lisa, P.A.-C
--- NOTE | 2016-09-20 16:07 | ED MED RECONCILIATION SUMMARY ---
Patient: ABHIJEET HUI Medication Reconciliation Report [facility] VisitID: [id number] [address] [place] [address] 50y, F Registration Date/Time: 09/20/2016 Weight: 96.6 kg Height/Length: 68 in. BMI: 32.4 ALLERGIES: Penicillin The patient's Home Medications are listed below: THE FOLLOWING MEDICATIONS NEED TO BE RECONCILED: NexIUM Oral The source(s) of the original Home Medication information: Not obtained. The following Medications were given to the patient in the Emergency Department: IV NS IV Fluids bolus 0, then 1000 mL/hr, administered: 09/20/2016 1:38:00 PM Zofran [IVP] IVP 8 mg, administered: 09/20/2016 1:42:00 PM PHENERGAN [IVP] IVP 12.5 mg, administered: 09/20/2016 2:20:00 PM Dilaudid [IVP] IVP 1 mg, administered: 09/20/2016 2:23:00 PM Metronidazole [PO] PO 500 mg, administered: 09/20/2016 3:56:00 PM Ciprofloxacin [PO] PO 500 mg, administered: 09/20/2016 3:57:00 PM The following Medications were prescribed to the patient: Hydrocodone/APAP 5mg / 325mg: take 1 orally every 6 hours as needed for pain. Dispense fifteen (15). No refill. -- Koroleva, Lisa, P.A.-C Zofran (orally disintegrating tablets) 4 mg: take 1 orally every 6 hours as needed for nausea. Dispense ten (10). No refill. Substitution is permissible. -- Koroleva, Lisa, P.A.-C Cipro 500 mg: take 1 tab orally every 12 hours for 10 days. No refills. Substitution is permissible. -- Koroleva, Lisa, P.A.-C Phenergan take 1 every 8 hours as needed for nausea. Dispense fifteen (15). No refill -- Koroleva, Lisa, P.A.-C Metronidazole 500 mg: Take 1 tablet orally every 8 hours for 10 days. No refill -- Koroleva, Lisa, P.A.-C
== END 2016-09-20 16:00 | disposition home or self-care (01) ==
LOC: ED SRH 13:05
DX: K57.92 Diverticulitis of intestine, part unspecified, without perforation or abscess without bleeding (principal); K21.9 Gastro-esophageal reflux disease without esophagitis; Z88.0 Allergy status to penicillin
CPT/HCPCS: 90004; 90100; 92235; 95059